=== PATIENT | female | born 1945 | race Caucasian/White ===

== ENCOUNTER 2020-10-20 06:37 | Inpatient (IN) | payer OTHER ==
[2020-10-20] VITALS (25 sets, daily range): BP systolic 110–146; BP diastolic 46–74
[~2020-10-20] VITALS: Ht 154.9 cm; Wt 76.2 kg
--- NOTE | ~2020-10-20 | CON ---
[address] [address] CONSULTATION Name: JERAD BYRD Room: [address]#: [id number] Admission: 10/20/20 Attend Phys: Cherrie Hussein MD Discharge: 10/24/20 Date of : 43 Report #: [id number] THIS REPORT FOR: cc: Manish Levine MD, Thomas W. MD Pervez, Adeel MD ~ DOC #: [id number] Mayur Brizuela MD DATE OF CONSULTATION: 10/20/2020 CONSULTATION REQUESTED BY: Hospitalist service. INDICATION FOR CONSULTATION: Acute hypoxemic respiratory failure/ventilator management. HISTORY OF PRESENT ILLNESS: A 75-year-old female who has a history of oxygen-dependent COPD. She also has a history of previous lung cancer. She is not on a CPAP or BiPAP at night. The patient is now admitted with acute shortness of breath. The patient was already endotracheally intubated and therefore, information regarding recent history is limited. The patient is reported to have had an increase in cough recently as well. There is no known history of chest pain. The patient required to be endotracheally intubated for respiratory distress on initial presentation. The patient subsequently had a central line placement attempt, which led to the development of a pneumothorax on the right side. Her right lung had 50% collapse. The patient had a small chest tube placed on the right side. The patient currently only has a small pneumothorax on the right side. She initially was acidotic on arterial blood gas. However, since then, we have been oxygenating and ventilating adequately. She currently is on 40% FIO2 and 0 of PEEP. She appears stable on exam on the ventilator. She is also hemodynamically stable and currently sedated with Versed and fentanyl. The patient is unable to provide a further history or review of systems. PAST MEDICAL HISTORY: COPD, on oxygen custodial; lung cancer; previously had a Port-A-Cath, which was removed; and hypertension. Information regarding further past medical history is not available. SOCIAL HISTORY: Extensive history of smoking, discontinued seven years ago. No known history of heavy alcohol use or illegal drug use. CURRENT MEDICATIONS: List in [facility] Reviewed. HOME MEDICATIONS: I do not have the list available. She is reportedly on Trelegy Ellipta inhaler and [place] [address] CONSULTATION Name: CARSONJERAD L Room: [address]#: [id number] Admission: 10/20/20 Attend Phys: Cherrie Hussein MD Discharge: 10/24/20 Date of : 43 Report #: [id number] FAMILY HISTORY: No pertinent family history is known at this time. ALLERGIES: No known drug allergies. PHYSICAL EXAMINATION: GENERAL: She is sedated with Versed and fentanyl. VITAL SIGNS: She has a pulse of 87, blood pressure of 129/64, saturating 94% and is on 40% FIO2 without PEEP. She is not overbreathing the ventilator. Respiratory rate is set at 14. She is breathing at 14, tidal volume is 460. She is afebrile. Heart rate today is 87, temperature 36.5. Body mass index 31.2. HEENT: Head is normocephalic and atraumatic. Pupils are bilaterally constricted but equal. Endotracheal tube was in good position. NECK: Does not show raised JVP, asymmetry, mass or lymph nodes. CHEST: Symmetrical expansion on inspection and palpation. LUNGS: On auscultation, breath sounds are markedly decreased bilaterally. Breath sounds are bilaterally equal. No added sounds. There is a chest tube on the right side, small size. HEART: Regular. There is no murmur. ABDOMEN: Soft and nontender. LOWER EXTREMITIES: Show no edema and no calf tenderness. SKIN: Dry and intact. NEUROLOGIC: Moves all extremities bilaterally equally and spontaneously with no focal deficit identified. LABORATORY DATA: Arterial blood gas as well as lab work are in the [facility] and these were reviewed. Chest x-rays in [facility] reviewed. ASSESSMENT AND PLAN: 1. Acute hypoxemic respiratory failure secondary to chronic obstructive pulmonary disease exacerbation/rule out thromboembolism. At this time, we will repeat an arterial blood gas. We will also do a chest x-ray and then reassess the ventilator. For now, continue the current sedation with Versed and fentanyl. If she continues to improve, then I will be inclined to taper off her Versed and start Precedex. 2. Chronic obstructive pulmonary disease exacerbation, on Solu-Medrol and nebulized bronchodilators. 3. Pulmonary infiltrates, ceftriaxone and Zithromax. Cultures and serologies are ordered. 4. Lung mass. This could be old and treated. At some point, we will need a CT. I am awaiting D-dimer. We will do venous Dopplers to rule out thromboembolism. If a D-dimer is elevated, I will also order an echo. We will also consider a CTA of the chest if the D-dimer is elevated. We will still need a CT, which be done later on as well if the D-dimer is normal. [address] [address] CONSULTATION Name: JERAD BYRD Room: [address]#: [id number] Admission: 10/20/20 Attend Phys: Cherrie Hussein MD Discharge: 10/24/20 Date of : 43 Report #: [id number] 5. Anemia/deep venous thrombosis prophylaxis, for now cautiously ordered a prophylactic dose Lovenox. We will watch H and H. 6. Gastrointestinal prophylaxis, Protonix. 7. C. difficile prophylaxis, we will start Lactinex. 8. Fluid and electrolytes/IV access, now has a PICC line. For now ordered Ringer's lactate at 50. We will repeat labs this afternoon and then reassess. The patient is critically ill at this time. Critical care time today exceeds 45 minutes. Mayur Brizuela MD AP/NAYELI By: 1157 1947Ajus Brizuela MD /nt
[2020-10-20 08:22] LABS: BE 1.1 mmol/L (-2 to +3)
[2020-10-20 08:24] LABS: PCO2 60.9 mmHg (35.0-45.0); PO2 272.3 mmHg (75.0-100.0); pH 7.291 (7.340-7.450)
[2020-10-20 08:52] LABS: HEMATOCRIT 28.5 % (37.0-47.0); MCH 29.8 pg (26.0-34.0); MCHC 31.5 g/dL (28.0-37.0); MCV 94.4 fL (80.0-100.0); MPV 7.7 fl. (7.2-11.1); NUCLEATED RBCS 0 /100WBC; PLATELET COUNT* 335 thou/uL (150-400); RBC 3.02 mil/uL (4.20-5.00); RDW-CV 15.2 % (10.5-14.5); WBC 15.2 thou/uL (4.0-11.0)
[2020-10-20 09:06] LABS: CALCIUM 8.9 mg/dL (8.5-10.1); CREATININE 1.1 mg/dL (0.6-1.3); POTASSIUM 4.5 mmol/L (3.5-5.1)
[2020-10-20 09:10] LABS: ALBUMIN 2.6 g/dL (3.4-5.0); MAGNESIUM 1.8 mg/dL (1.8-2.4); TOTAL BILIRUBIN 0.4 mg/dL (<0.1-1.0)
[2020-10-20 09:23] LABS: ABSOLUTE LYMPHOCYTES 0.8 thou/uL (0.8-5.3); ABSOLUTE MONOCYTES 0.3 thou/uL (0.0-1.2); ABSOLUTE NEUTROPHILS 14.1 thou/uL (1.6-8.1); ANISOCYTOSIS 1+; PLATELET ESTIMATE ADEQUATE; POIKILOCYTOSIS 1+; POLYCHROMASIA Occasional
--- NOTE | 2020-10-20 09:51 | NUR ---
RIGHT BASILIC VESSEL ACCESSED FOR 5 LUXEMBOURGER TRIPLE LUMEN PICC. LINE PRE-TRIMMED TO 36CM AND ADVANCED TO THE ZERO MCKENZIE WITH NO RESISTANCE MET. UPER ARM CIRCUMFERENCE ABOVE INSERTION SITE=10 1/2". SHERLOCK MAGNET AND 3CG CONFIRMATION OF TIP TERMINATION AT THE CAVOATRIAL JUNCTION APPRECIATED. GUIDE WIRE REMOVED, LINE FLUSHED AND INSERTION SITE DRESSED. REPORT GIVEN TO SABINA GONZALES.
[2020-10-20] MEDS ORDERED: TRELEGY ELLIPT1 EACH INH (10:35)
[2020-10-20] MEDS ORDERED: FUROSEMIDE 40 M40 MG PO (10:36)
[2020-10-20] MEDS ORDERED: COZAAR 25 MG TA25 M1 PO (10:37)
[2020-10-20] MEDS ORDERED: IPRAT-ALBUT 0.5-3 ML INH (10:37)
[2020-10-20] MEDS ORDERED: TOPROL XL25 MG PO (10:38)
[2020-10-20] MEDS ORDERED: NITROSTAT0.4 M1 SUBLING (10:39)
[2020-10-20] MEDS ORDERED: MIRALAX119 GM PO (10:40)
[2020-10-20] MEDS ORDERED: SPIRONOLACTONE25 MG PO (10:41)
[2020-10-20] MEDS ORDERED: ZANAFLEX4 M1 PO (10:42)
[2020-10-20] MEDS ORDERED: ASA81BEC PO (10:43)
[2020-10-20] MEDS ORDERED: PROAIR HFA8.5 GM INH (10:43)
[2020-10-20] MEDS ORDERED: LIPITOR40 MG PO (10:44)
[2020-10-20] MEDS ORDERED: BUPROPION XL300 MG PO (10:45)
[2020-10-20] MEDS ORDERED: CLONAZEPAM 0.50.5 M1 PO (10:46)
[2020-10-20] MEDS ORDERED: SLEEP AID50 MG PO (10:47)
[2020-10-20] MEDS ORDERED: PLAVIX 75 MG TA75 MG PO (10:47)
[2020-10-20] MEDS ORDERED: CYMBALTA60 MG PO (10:48)
[2020-10-20] MEDS ORDERED: PEPCID20 MG PO (10:49)
[2020-10-20] MEDS ORDERED: FLONASE 0.05%50 MCG NARES (10:50)
[2020-10-20 13:22] LABS: BE 4.5 mmol/L (-2 to +3); PO2 67.4 mmHg (75.0-100.0); pH 7.385 (7.340-7.450)
[2020-10-20 13:45] LABS: ABSOLUTE LYMPHOCYTES 0.6 thou/uL (0.8-5.3); ABSOLUTE MONOCYTES 0.3 thou/uL (0.0-1.2); ABSOLUTE NEUTROPHILS 9.2 thou/uL (1.6-8.1); BASOPHILS 0.2 %; EOSINOPHILS 0.1 %; HEMATOCRIT 28.4 % (37.0-47.0); HEMOGLOBIN 9.1 gm/dL (12.0-15.0); LYMPHOCYTES 6.1 %; MCH 30.6 pg (26.0-34.0); MCHC 32.2 g/dL (28.0-37.0); MCV 95.2 fL (80.0-100.0); MONOCYTES 2.7 %; MPV 7.8 fl. (7.2-11.1); NUCLEATED RBCS 0 /100WBC; PLATELET COUNT* 314 thou/uL (150-400); POLYS 90.9 %; RBC 2.98 mil/uL (4.20-5.00); RDW-CV 15.1 % (10.5-14.5); WBC 10.1 thou/uL (4.0-11.0)
[2020-10-20 13:58] LABS: APTT 24.3 Seconds (25.0-31.3); PROTIME 10.8 Seconds (9.20-11.50)
[2020-10-20 13:59] LABS: CALCIUM 9.1 mg/dL (8.5-10.1); MAGNESIUM 1.8 mg/dL (1.8-2.4); POTASSIUM 4.5 mmol/L (3.5-5.1)
--- NOTE | 2020-10-20 16:27 | EKG ---
[place] [address] ELECTROCARDIOGRAM REPORT Name: JERRY BYRDMARIA R Patel Room: [address] IN [facility]#: [id number] Admission: 10/20/20 Attend Phys: Cherrie Hussein, Discharge: Date of : 43 Date of Service: 10/20/20 0848 Report #: [id number] THIS REPORT FOR: //name// [facility] ED Test Date: 2020-10-20 Test Time: 08:48:08 Pat Name: JERAD BYRD Department: Room: [facility] Gender: F Machine Builder: VIRY : 1945 Requested By: Sinai Petit Order Number: [id number] MD: Alonso Arana Measurements Intervals [place] Rate: 83 P: -7 VT: 159 QRS: -43 QRSD: 99 T: 110 QT: 402 QTc: 473 Interpretive Statements Sinus rhythm Left anterior fascicular block Probable anterior infarct, old Abnormal T, consider ischemia, lateral leads No previous ECG available for comparison Electronically Signed On 10-20-2020 16:27:16 CDT by Alonso Arana [email or web address] <ELECTRONICALLY SIGNED> By: Alonso Arana MD, [facility] 10/20/20 1627 0848 0848 Alonso Arana MD, [facility] /EPI
--- NOTE | 2020-10-20 17:07 | 2DMMODE ---
[place] [address] 2 D/M-MODE ECHOCARDIOGRAM Name: CARSONJERRYJERAD L Room: [address] IN .[place].#: [id number] Admission: 10/20/20 Attend Phys: Cherrie Hussein, Discharge: Date of : 43 Date of Service: 10/20/20 1707 Report #: [id number] THIS REPORT FOR: cc: Manish Levine MD, Thomas W. MD Blick, David R. MD [facility] ~ APPROVED REPORT Study performed: 10/20/2020 14:17:21 EXAM: Comprehensive 2D, Doppler, and color-flow Echocardiogram Patient Location: In-Patient Room #: 001 Status: routine BSA: 1.74 HR: 88 bpm BP: 116/65 mmHg Rhythm: NSR Other Information Study Quality: Good Indications Dyspnea 2D Dimensions IVSd: 10.87 (7-11mm) LVOT Diam: 18.98 (18-24mm) LVDd: 54.59 mm PWd: 9.55 (7-11mm) Ascending Ao: 28.83 (22-36mm) LVDs: 43.64 (25-40mm) Aortic Root: 29.71 mm Volumes Left Atrial Volume (Systole) LA ESV Index: 34.30 mL/m2 Aortic Valve AoV Peak Saurabh.: 1.18 m/s AO Peak Gr.: 5.58 mmHg LVOT Max P.72 mmHg AO Mean Gr.: 2.88 mmHg LVOT Mean P.16 mmHg LVOT Max V: 0.83 m/s AO V2 VTI: 18.20 cm LVOT Mean V: 0.49 m/s WARREN (VTI): 2.24 cm2 LVOT V1 VTI: 14.40 cm AI Ralls: 4.92 m/s2 [place] [address] 2 D/M-MODE ECHOCARDIOGRAM Name: JERAD BYRD Room: [address] IN .[place].#: [id number] Admission: 10/20/20 Attend Phys: Cherrie Hussein, Discharge: Date of : 43 Date of Service: 10/20/20 1707 Report #: [id number] AI PHT: 221.36 ms Mitral Valve E/A Ratio: 1.84 MV Decel. Time: 150.54 ms MV E Max Saurabh.: 1.30 m/s MV PHT: 43.66 ms MVA (PHT): 5.04 cm2 TDI E/Lateral E': 21.67 E/Medial E': 21.67 Medial E' Saurabh.: 0.06 m/s Lateral E' Saurabh.: 0.06 m/s Pulmonary Valve PV Peak Saurabh.: 0.79 m/s PV Peak Gr.: 2.51 mmHg Tricuspid Valve RAP Estimate: 10.00 mmHg TR Peak Gr.: 38.55 mmHg RVSP: 48.00 mmHg PA Pressure: 48.00 mmHg Left Ventricle The left ventricle is normal size. There is normal left ventricular wall thickness. Left ventricular systolic function is borderline. LVEF is 45-50%. Grade IV - fixed restrictive diastolic dysfunction. Right Ventricle The right ventricle is normal size. The right ventricular systolic function is normal. Atria Left atrium is mildly dilated. The right atrium size is normal. Aortic Valve The Aortic valve is sclerotic. Mild aortic regurgitation. There is no aortic valvular stenosis. Mitral Valve There is mitral annular calcification. Mild mitral annular calcification. Moderate mitral regurgitation. No evidence of mitral valve stenosis[place] [address] 2 D/M-MODE ECHOCARDIOGRAM Name: JERAD BYRD Room: [address]#: [id number] Admission: 10/20/20 Attend Phys: Cherrie Hussein, Discharge: Date of : 43 Date of Service: 10/20/20 1707 Report #: [id number] The tricuspid valve is normal in structure. Mild tricuspid regurgitation. estimated pa pressure 45 mm Hg Pulmonic Valve The pulmonary valve is normal in structure. Mild pulmonic regurgitation. Great Vessels The aortic root is normal in size. IVC is dilated. Pericardium There is no pericardial effusion. <Conclusion> Left atrium is mildly dilated. LVEF is 45-50%. The Aortic valve is sclerotic. Mild aortic regurgitation. Moderate mitral regurgitation. Mild tricuspid regurgitation. estimated pa pressure 45 mm Hg <ELECTRONICALLY SIGNED> By: Alonso Arana MD, FACC 10/20/20 170 06 06 Alonso Arana MD, FACC /INF
--- NOTE | 2020-10-20 17:13 | NUR ---
PT PROGRESSING TOWARDS GOALS. ADMITTED ON VENTILATOR AND TITRATED TO 40%. ECHO AND VENOUS DOPPLERS DONE. CXR REPEATED WITH RESOUTION OF PNEUMOTHORAX. VSS. DRIPS CHARTED. TO HAVE CTA OF CHEST TODAY. DAUGHTER AND STEPDAUGHTER HAVE VISITED.
[2020-10-20 23:06] LABS: GLYCOHEMOGLOBIN (HGB A1C) 5.6 % (4.8-5.6)
[2020-10-21] VITALS (47 sets, daily range): BP systolic 99–135; BP diastolic 40–75
[2020-10-21 05:21] LABS: ABSOLUTE LYMPHOCYTES 0.8 thou/uL (0.8-5.3); ABSOLUTE MONOCYTES 0.7 thou/uL (0.0-1.2); ABSOLUTE NEUTROPHILS 8.7 thou/uL (1.6-8.1); BASOPHILS 0.1 %; HEMOGLOBIN 8.4 gm/dL (12.0-15.0); LYMPHOCYTES 7.5 %; MCH 30.7 pg (26.0-34.0); MCHC 32.3 g/dL (28.0-37.0); MCV 94.9 fL (80.0-100.0); MPV 8.1 fl. (7.2-11.1); NUCLEATED RBCS 0 /100WBC; PLATELET COUNT* 308 thou/uL (150-400); POLYS 85.4 %; RBC 2.74 mil/uL (4.20-5.00); RDW-CV 15.4 % (10.5-14.5); WBC 10.2 thou/uL (4.0-11.0)
[2020-10-21 05:55] LABS: ALBUMIN 2.5 g/dL (3.4-5.0); CALCIUM 8.6 mg/dL (8.5-10.1); CREATININE 1.2 mg/dL (0.6-1.3); MAGNESIUM 2.3 mg/dL (1.8-2.4); POTASSIUM 4.5 mmol/L (3.5-5.1); TOTAL BILIRUBIN 0.3 mg/dL (<0.1-1.0); TOTAL PROTEIN 6.8 g/dL (6.4-8.2)
[2020-10-21 08:54] LABS: BE -0.1 mmol/L (-2 to +3); PCO2 46.5 mmHg (35.0-45.0); PO2 108.4 mmHg (75.0-100.0); pH 7.358 (7.340-7.450)
--- NOTE | 2020-10-21 10:25 | NUR ---
Spoke with patient's son (Mark) while present in room due to patient being ventilated. Advised Mark of the role of CM. Per Mark he confirmed the following information; Patient admitted from home and she lives with SO Bob. Patient just moved here from [place] to be closer to her family and be with SO. Patient has been here for about 2 months. Sister Nancy is DPOA and she will bring a copy of the documentation the next time she comes to visit the patient. [facility] with no stairs. Everything is on 1 floor. Support systems for patient includes her dtr (Nancy-VICTORINA), Mira (Dtr of SO), Bob (SO) and Mark (son). Patient is currently retired and was indep with adls prior to admission. Patient was able to drive and carried a portable O2 tank. Per Mark, patient does not wear it consistently. Called Nancy who stated the patient wears 4L of 02. O2 recently increased last week. Patient does not use a walker or cane for mobility and was able to ambulate independently. No hx of HH, SNF, rehab, behavioral health services or dialysis. PCP is located at [facility]. PCP Name is Dr. Manish Levine ([phone]). Mark also stated "she always does good for a little while with her breathing but then regressives after alot of laborous activity (i.e. going to a restraurant and being out for most of the day)". Pt was out to dinner the night before her breathing worsened. Called Nancy as well who provided PCP information and she also stated that if the patient will need to downgrade out of the ICU she would like to transfer the patient to [facility]. Per dtr, all of the patient's doctors are located at [facility]. Nancy also stated that it is okay to talk to Mark and Mira while they are in the hospital because they have a close relationship. CM to continue to follow for safe dc planning Nancy (DTR/DPOA): [phone]
[2020-10-21 11:52] LABS: CALCIUM 8.5 mg/dL (8.5-10.1); CREATININE 1.3 mg/dL (0.6-1.3); POTASSIUM 4.3 mmol/L (3.5-5.1); TROPONIN-I LEVEL 0.14 ng/mL (<0.06)
[2020-10-21 12:26] LABS: BE 1.7 mmol/L (-2 to +3); PO2 92.7 mmHg (75.0-100.0); pH 7.303 (7.340-7.450)
[2020-10-21 12:29] LABS: PCO2 59.7 mmHg (35.0-45.0)
--- NOTE | 2020-10-21 13:00 | NUR ---
WEANING TRIAL PERFORMED BUT NO PLANS OF EXTUBATION TODAY. PT VERY ANXIOUS, FAMILY WITH THE PATIENT FOR EMOTIONAL SUPPORT. PRECEDEX ADDED FOR SEDATION AND PLAN TO DC VERSED. TUBE FEEDINGS INTIATED WITH JEVITY 1.5 AT 2O MLS/HR.
[2020-10-21 20:50] LABS: BE 1.2 mmol/L (-2 to +3)
[2020-10-21 20:54] LABS: pH 7.262 (7.340-7.450)
[2020-10-21 20:55] LABS: PCO2 66.1 mmHg (35.0-45.0); PO2 308.2 mmHg (75.0-100.0)
--- NOTE | 2020-10-21 22:39 | NUR ---
PATIENT EXTUBATED SELF AT 2009, PLACED ON NRB. MAINTAINING O2 SAT AT 100%. PATIENT AWAKE BUT LETHARGIC. ABLE TO ANSWER ORIENTATION QUESTIONS. ABG, CHEST X RAY OBTAINED. SPOKE WITH DR. GASTELUM REGARDING INCIDENT. ORDERS TO PLACE PATIENT ON BIPAP AND CHECK ABG IN 1 HOUR. PATIENT PLACED ON BIPAP, HOWEVER HER MENTAL STATUS CONTINUED TO DECLINE. LABORED AND SHALLOW RESPIRATIONS. PATIENT WAS UNABLE TO TRIGGER THE BIPAP AND COULD NOT STAY AWAKE ON IT. SPOKE WITH DR. GASTELUM. PATIENT REINTUBATED BY DR. ACEVEDO. OG PLACED AFTER INTUBATED. X RAY CONFIRMS PLACEMENT OF ET TUBE AND OG, CLEARED BY DR. ACEVEDO.
[2020-10-21 23:23] LABS: BE -0.6 mmol/L (-2 to +3); PCO2 48.7 mmHg (35.0-45.0); PO2 79.2 mmHg (75.0-100.0); pH 7.337 (7.340-7.450)
[2020-10-22] VITALS (46 sets, daily range): BP systolic 118–162; BP diastolic 50–75
[2020-10-22 06:02] LABS: ABSOLUTE LYMPHOCYTES 0.4 thou/uL (0.8-5.3); ABSOLUTE MONOCYTES 0.5 thou/uL (0.0-1.2); ABSOLUTE NEUTROPHILS 8.4 thou/uL (1.6-8.1); HEMATOCRIT 26.9 % (37.0-47.0); HEMOGLOBIN 8.7 gm/dL (12.0-15.0); LYMPHOCYTES 4.7 %; MCH 30.6 pg (26.0-34.0); MCHC 32.2 g/dL (28.0-37.0); MCV 95.1 fL (80.0-100.0); MONOCYTES 5.1 %; MPV 7.9 fl. (7.2-11.1); NUCLEATED RBCS 0 /100WBC; PLATELET COUNT* 314 thou/uL (150-400); POLYS 90.2 %; RBC 2.83 mil/uL (4.20-5.00); RDW-CV 15.3 % (10.5-14.5); WBC 9.3 thou/uL (4.0-11.0)
[2020-10-22 06:14] LABS: CREATININE 1.3 mg/dL (0.6-1.3); MAGNESIUM 2.7 mg/dL (1.8-2.4); POTASSIUM 4.6 mmol/L (3.5-5.1)
--- NOTE | 2020-10-22 07:42 | NUR ---
ASSESSMENTS CHARTED. PATIENT AGITATED AFTER REINTUBATION, SEDATION ORDERS OBTAINED FROM DR. GASTELUM. TUBE FEEDING RESUMED AND INCREASED TO GOAL. FAMILY UPDATED ON EVENTS OVERNIGHT. CHEST TUBE REMAINS IN PLACE.
--- NOTE | 2020-10-22 13:12 | NUR ---
Continue high dose steroids and empiric abx. Chest tube to suction while on vent. Patient self extubated last night and was subsequently reintubated. Fio2 45%. Sedation required for agitation. NGT and TF in place. Left VM for VICTORINA Cruz (dtr) for a call back. Want to advise her that Dr. Sullivan is aware of transfer request of the family once the patient is stable enought to dc out of the ICU but still needing hospital care. Will intiate transfer if/when needed. Also she will need to sign the IMM form on the patient's behalf. Will follow up if no return call. CM to continue to follow for safe dc planning
--- NOTE | 2020-10-22 18:32 | NUR ---
ASSUMED CARE 0700. ASSESSMENTS COMPLETED, SEE CHART FOR DETAILS. VITALS CHARTED. TF RESIDUALS 400 AT 0800 ASSESSMENT, TF HELD AT THIS TIME, ORDERS RCVD TO ADDRESS GUT MOTILITY, TF RESTARTED AT 1300, TF RESIDUALS 140 AT 1600 ASSESSMENT, RESIDUALS RETURNED AND PLACED ON HOLD AT THIS TIME. WILL CONTINUE TO MONITOR.
[2020-10-23] VITALS (25 sets, daily range): BP systolic 124–215; BP diastolic 60–102
[2020-10-23 06:06] LABS: HEMOGLOBIN 8.9 gm/dL (12.0-15.0); MCH 30.6 pg (26.0-34.0); MCHC 31.7 g/dL (28.0-37.0); MCV 96.5 fL (80.0-100.0); MPV 7.9 fl. (7.2-11.1); NUCLEATED RBCS 0 /100WBC; PLATELET COUNT* 327 thou/uL (150-400); RDW-CV 15.8 % (10.5-14.5)
[2020-10-23 06:14] LABS: CALCIUM 9.4 mg/dL (8.5-10.1); MAGNESIUM 2.9 mg/dL (1.8-2.4); POTASSIUM 4.4 mmol/L (3.5-5.1)
--- NOTE | 2020-10-23 06:49 | NUR ---
ASSUMED PATIENT CARE AT 1900. ASSESSEMENTS COMPLETED CHARTED. CARDIAC MONITORING IN PLACE. NO BM DURING SHIFT. HOURLY ROUNDING IN PLACE FOR PATIENT SAFETY. FALL PRECAUTIONS IN PLACE FOR PATIENT SAFETY. BED LOCKED AND IN LOWEST POSITION.
[2020-10-23 07:14] LABS: ABSOLUTE LYMPHOCYTES 0.8 thou/uL (0.8-5.3); ABSOLUTE MONOCYTES 0.3 thou/uL (0.0-1.2); ABSOLUTE NEUTROPHILS 7.9 thou/uL (1.6-8.1); ANISOCYTOSIS 1+; PLATELET ESTIMATE ADEQUATE; POIKILOCYTOSIS 1+
--- NOTE | 2020-10-23 11:55 | NUR ---
PLAN OF CARE: PT REMAINS ICU STATUS. PLAN FOR POSSIBLE WEAN TRIAL TODAY. PLAN FOR PT TO TRANSFER TO [facility] WHEN MEDICALLY STABLE PER PT'S FAMILY REQUEST, ALL OF THE PHYSICIANS NORMALLY INVOLVED IN PT'S CARE ARE AT [facility]. CM WILL REMAIN AVAILABLE TO ASSIST AND FOLLOW NEEDED.
[2020-10-23 12:08] LABS: BE -1.5 mmol/L (-2 to +3); PCO2 46.2 mmHg (35.0-45.0); PO2 103.5 mmHg (75.0-100.0)
--- NOTE | 2020-10-23 12:31 | NUR ---
EXTUBATED AT 1220 TO 5LNC PER MD ORDER. OG REMOVED, TF D/C. FENT GTT AND PROPOFOL GTT D/C. DEX GTT CONTINUE TO RUN PER MD ORDER. VSS.
[2020-10-24] VITALS (18 sets, daily range): BP systolic 140–188; BP diastolic 57–88
[2020-10-24 05:35] LABS: ABSOLUTE LYMPHOCYTES 0.5 thou/uL (0.8-5.3); ABSOLUTE MONOCYTES 1.4 thou/uL (0.0-1.2); ABSOLUTE NEUTROPHILS 11.4 thou/uL (1.6-8.1); BASOPHILS 0.1 %; HEMOGLOBIN 9.1 gm/dL (12.0-15.0); LYMPHOCYTES 3.4 %; MCH 29.7 pg (26.0-34.0); MCHC 30.3 g/dL (28.0-37.0); MCV 97.9 fL (80.0-100.0); MONOCYTES 10.7 %; MPV 7.5 fl. (7.2-11.1); NUCLEATED RBCS 0 /100WBC; PLATELET COUNT* 400 thou/uL (150-400); POLYS 85.8 %; RBC 3.06 mil/uL (4.20-5.00); WBC 13.3 thou/uL (4.0-11.0)
[2020-10-24 05:45] LABS: CALCIUM 9.2 mg/dL (8.5-10.1); CREATININE 1.2 mg/dL (0.6-1.3); MAGNESIUM 2.8 mg/dL (1.8-2.4); POTASSIUM 5.3 mmol/L (3.5-5.1)
--- NOTE | 2020-10-24 06:07 | NUR ---
ASSUMED PATIENT CARE AT 1900. ASSESSMENTS COMPLETED CHARTED. CARDIAC MONITORING IN PLACE. PATIENT BP ELEVATED DURING SHIFT. SCHEDULED BP MEDICATION GIVEN, SEE EMAR FOR DETAILS. PATIENT BP STILL ELEVATED AFTER BP MEDICATION GIVEN, PHYSICIAN NOTIFIED. NEW ORDERS RECEIVED AND FOLLOWED. REPEAT DOSE OF BP MEDICATION GIVEN PER DR. PARKS'S ORDERS, SEE EMAR FOR DETAILS. CONTINUING TO MONITOR BP. HOURLY ROUNDING IN PLACE FOR PATIENT SAFETY. FALL PRECAUTIONS IN PLACE FOR PATIENT SAFETY. BED ALARM ON. BED LOCKED AND IN LOWEST POSITION. CLWR.
[2020-10-24 11:28] LABS: BE -0.3 mmol/L (-2 to +3); PO2 76.6 mmHg (75.0-100.0)
--- NOTE | 2020-10-24 13:53 | NUR ---
Patient was extubated yesterday and was placed on Bipap. Patient was very anxious and began pulling at Bipap overnight so ativan was given and patient is maxed out on precedex. Discussed with Dr. Barron and RN that patient may need to be reintubated due to unmanagble breathing with current Bipap. Per pulm patient may need possible trach and peg in the future. Dtr Nancy (DPOA) is fine with reintubation but she wants to see how she does in a few days to determine next steps. Pnuemothorax noted on r side. CM to continue to follow for safe dc planning.
--- NOTE | 2020-10-24 15:10 | NUR ---
pts ABG late morning was critical. Dr. Brizuela present at that time and suggested intubation. the pts family requested time to discuss their options and plan of care for the pt. the family, including DPOA, daughter Nancy, came to the decision to not intubate the pt and to make her comfort care. Dr. Barron came to the bedside, spoke with the family, and comfort care orders were placed. comfort care meds administered starting at 1420, please see MAR. family currently at the pts bedside for comfort. VSS are declining. please see chart.
--- NOTE | 2020-10-24 15:49 | NUR ---
TIME OF 1539. 2 RNs LISTENED FOR ABSENCE OF HEART TONES, NANCY Zhou RN, AND CARLOTA Brooks RN. NO HEART TONES WERE ASCULTATED. ASYSTOLE ON THE MONITOR. FAMILY AT THE PTS BEDSIDE.
== END 2020-10-24 15:39 | DRG 208 ==
LOC: M.ERS 06:37 → M.ICU 07:33 → M.TBA-ER 07:33 → M.ICU 09:40
PROVIDERS: Internal Medicine; Internal Medicine Critical Care Medicine; Personal Emergency Response Attendant; ADMIT Internal Medicine; ATTEND Internal Medicine
PROC: B548ZZA Ultrasonography of Superior Vena Cava, Guidance (ICD-10-PCS; principal; 2020-10-20)
PROC: 02HV33Z Insertion of Infusion Device into Superior Vena Cava, Percutaneous Approach (ICD-10-PCS; principal; 2020-10-20)
PROC: 0W9930Z Drainage of Right Pleural Cavity with Drainage Device, Percutaneous Approach (ICD-10-PCS; principal; 2020-10-20)
PROC: 5A1935Z Respiratory Ventilation, Less than 24 Consecutive Hours (ICD-10-PCS; 2020-10-21)
PROC: 0BH17EZ Insertion of Endotracheal Airway into Trachea, Via Natural or Artificial Opening (ICD-10-PCS; 2020-10-21)
PROC: 0BH17EZ Insertion of Endotracheal Airway into Trachea, Via Natural or Artificial Opening (ICD-10-PCS; 2020-10-22)
PROC: 5A1945Z Respiratory Ventilation, 24-96 Consecutive Hours (ICD-10-PCS; 2020-10-22)
PROC: 5A09357 Assistance with Respiratory Ventilation, Less than 24 Consecutive Hours, Continuous Positive Airway Pressure (ICD-10-PCS; 2020-10-23)
PROC: 5A0935A Assistance with Respiratory Ventilation, Less than 24 Consecutive Hours, High Flow/Velocity Cannula (ICD-10-PCS; 2020-10-23)
DX: J96.01 Acute respiratory failure with hypoxia (principal); R65.11 Systemic inflammatory response syndrome (SIRS) of non-infectious origin with acute organ dysfunction; J93.83 Other pneumothorax; J44.1 Chronic obstructive pulmonary disease with (acute) exacerbation; I13.0 Hypertensive heart and chronic kidney disease with heart failure and stage 1 through stage 4 chronic kidney disease, or unspecified chronic kidney disease; I50.22 Chronic systolic (congestive) heart failure; J98.11 Atelectasis; E87.2 Acidosis; G93.40 Encephalopathy, unspecified; Z20.822 Contact with and (suspected) exposure to COVID-19; D64.9 Anemia, unspecified; J96.02 Acute respiratory failure with hypercapnia; N18.30 Chronic kidney disease, stage 3 unspecified; I27.20 Pulmonary hypertension, unspecified; R91.8 Other nonspecific abnormal finding of lung field; Z79.899 Other long term (current) drug therapy; Z79.82 Long term (current) use of aspirin; Z79.51 Long term (current) use of inhaled steroids; Z99.81 Dependence on supplemental oxygen; Z87.891 Personal history of nicotine dependence; Z85.118 Personal history of other malignant neoplasm of bronchus and lung; Z92.21 Personal history of antineoplastic chemotherapy; Z92.3 Personal history of irradiation